=== PATIENT | male | born 1995 | race Caucasian/White ===

== ENCOUNTER 2018-09-03 15:10 | Emergency (ER) | payer SELFPAY ==
--- NOTE | 2018-09-03 17:06 | ER Document Report ---
HPI - HPI Time Seen by Provider: 09/03/18 16:50 Pain Level: 3 Context: Patient is a 23-year-old male who presents emergency department with a chief complaint of sore throat, lightheadedness, loss of strength. He has had a runny nose and a cough. He had a temperature of 100.5 at home. He has not taken any medication and his temperature decreased to 99 here in the emergency department. Denies any medication use. He does have a history of asthma. He does vape ev german day and uses occasional marijuana. - CONSTITUTIONAL Constitutional: REPORTS: Fever. DENIES: Chills - EENT EENT: REPORTS: Sore Throat, Nasal Drainage-Clear, Congestion. DENIES: Ear Pain, Nasal Drainage-Purulent, Eye problems - NEURO Neurology: REPORTS: Headache, Weakness - CARDIOVASCULAR Cardiovascular: DENIES: Chest pain - RESPIRATORY Respiratory: REPORTS: Coughing. DENIES: Trouble Breathing - GASTROINTESTINAL Gastrointestinal: DENIES: Abdominal Pain, Nausea, Patient vomiting, Diarrhea - MUSCULOSKELETAL Musculoskeletal: DENIES: Extremity pain, Back Pain, Neck Pain, Swelling - DERM Skin Color: Normal Skin Problems: None Past Medical History - General Information source: Patient - Social History Smoking Status: Current Every Day Smoker - Smokes vape Frequency of alcohol use: Occasional Drug Abuse: Marijuana Family History: None Pulmonary Medical History: Reports: Hx Asthma Neurological Medical History: Reports: Hx Migraine Past Surgical History: Reports: Hx Genitourinary Surgery - Circumcised - Immunizations Immunizations up to date: Yes Hx Diphtheria, Pertussis, Tetanus Vaccination: No Vertical Provider Document - CONSTITUTIONAL Agree With Documented VS: Yes Exam Limitations: No Limitations General Appearance: No Apparent Distress - INFECTION CONTROL TRAVEL OUTSIDE OF THE [place] IN LAST 30 DAYS: No - HEENT HEENT: Atraumatic, Normocephalic, PERRLA, Pharyngeal Tenderness, Pharyngeal Erythema. negative: Pharyngeal Exudate, Tympanic Membrane Red, Tympanic Membrane Bulging - NECK Neck: Normal Inspection, Supple - RESPIRATORY Respiratory: Breath Sounds Normal, No Respiratory Distress - CARDIOVASCULAR Cardiovascular: Regular Rate, Regular Rhythm Pulses: Normal: Radial - MUSCULOSKELETAL/EXTREMETIES Musculoskeletal/Extremeties: FROM, Non-Tender - NEURO Level of Consciousness: Awake, Alert, Appropriate - DERM Integumentary: Warm, Dry, No Rash Course - Re-evaluation Re-evalutation: 09/03/18 17:06 Rapid strep has been sent. Monospot test was offered, and the patient refused. 09/03/18 18:08 Patient's rapid strep test is negative at this time. He will be started on cetirizine and Flonase. He is in agreement with this plan. I have also recommended tea with honey and Cepacol. I do not suspect patient has Andre's angina, a peritonsillar abscess, or any life-threatening etiology at this time. Airway is patent. Verbal discharge instructions were given to the patient. They verbalized understanding. They are stable for discharge. - Vital Signs Vital signs: Temp Pulse Resp BP Pulse Ox 99.8 F 78 15 132/70 H 98 09/03/18 15:25 09/03/18 15:25 09/03/18 15:25 09/03/18 15:25 09/03/18 15:25 Discharge - Discharge Clinical Impression: Cough, Sore throat Condition: Stable Disposition: HOME, SELF-CARE Instructions: Sore Throat ([facility]) Additional Instructions: You were seen today in the emergency department for a cough and sore throat. Your symptoms are most consistent with an upper respiratory viral infection. Please take acetaminophen 1000 mg and ibuprofen 600 mg every 6 hours as needed for any body aches or fever. You have been given cetirizine, medication to help with your runny nose. Take 1 tablet every day while you have symptoms. You hav e also been given Flonase, medication to help with the inflammation in your nose. Place 1 spray to each nostril twice a day. You can take [id number] Cepacol for your sore throat. If you develop a fever greater than 100.4 F while on ibuprofen and acetaminophen, develop shortness of breath, difficulty breathing, or any symptoms that are worrisome to you, please return to the emergency department. Prescriptions: Cetirizine HCl [All Day Allergy] 10 mg PO DAILY #30 tablet Fluticasone Propionate [Flonase Nasal [place] 50 Mcg/[place] 16 gm] 2 sprays NASL DAILY #1 inhaler Forms: Return to Work
[2018-09-03 18:31] VITALS: BP 129/76
== END 2018-09-03 18:30 | disposition home or self-care (01) ==
LOC: ER 15:10
DX: J02.9 Acute pharyngitis, unspecified (principal); R42 Dizziness and giddiness; R09.89 Other specified symptoms and signs involving the circulatory and respiratory systems; R05 Cough; R53.1 Weakness; J45.909 Unspecified asthma, uncomplicated; F17.290 Nicotine dependence, other tobacco product, uncomplicated; F12.10 Cannabis abuse, uncomplicated
CPT/HCPCS: 87070; 87880; 99283